=== PATIENT | male | born 1960 | race Caucasian/White ===

== ENCOUNTER 2017-04-05 17:43 | Inpatient (IN) | payer OTHER ==
[~2017-04-05] VITALS: Ht 182.9 cm; Wt 108.9 kg
[2017-04-05] MEDS ORDERED: ONDANSETRON HCL/PF 4 MG/2 ML VIAL IV ONE (18:00)
[2017-04-05] MEDS ORDERED: MORPHINE SULFATE INJ 2 MG/ML DISP.SYRIN IV ONE (18:00)
--- NOTE | 2017-04-05 18:00 | NUR ---
PATIENT PRESENTS TO ER C/O RIGHT ELBOW PAIN/INJURY S/P THROWING A FOOTBALL. PER PATIENT, HE HEARD A POP. PATIENT IS GRIMMACING IN PAIN. A/OX 4. BREATHING EVEN AND UNLABORED. NO SOB. VITALS STABLE. SAFETY AND COMFORT MEASURES IN PLACE. AWAITING MD ORDERS.
[2017-04-05] MEDS ORDERED: ONDANSETRON HCL/PF 4 MG/2 ML VIAL ONE (18:03)
[2017-04-05] MEDS ORDERED: MORPHINE SULFATE INJ 4 MG/ML DISP.SYRIN ONE (18:04)
--- NOTE | 2017-04-05 18:05 | NUR ---
NEW IV STARTED ON LAC, 20 G.
--- NOTE | 2017-04-05 18:09 | NUR ---
PATIENT MEDICATED PER MD ORDERS.
--- NOTE | 2017-04-05 18:14 | NUR ---
FLIGHT SUPERINTENDENT AT BEDSIDE.
[2017-04-05] MEDS ORDERED: HYDROMORPHONE INJ 0.5 MG/0.5 ML SYRINGE ONE ×2 (18:19→18:40)
--- NOTE | 2017-04-05 18:24 | NUR ---
PATIENT STILL IN SEVERE PAIN WHILE GETTING XRAY. PALOMA BAIN INFORMED, ORDERED 1MG DILAUDID IV. PATIENT MEDICATED PER MD ORDERS.
[2017-04-05] MEDS ORDERED: HYDROMORPHONE INJ 0.5 MG/0.5 ML SYRINGE IV ONE (18:30)
[2017-04-05] MEDS ORDERED: HYDROMORPHONE 1 MG/1 ML DISP.SYRIN IV ONE (19:00)
[2017-04-05 19:05] LABS: BASOPHILS # (AUTO) 0.3 /CMM (0.0-0.2); BASOPHILS % (AUTO) 2.1 % (0.0-2.0); EOSINOPHILS # (AUTO) 0.3 /CMM (0.0-0.7); EOSINOPHILS % (AUTO) 2.1 % (0.0-6.0); HEMATOCRIT 45 % (39-51); HEMOGLOBIN 15.4 g/dL (13.5-17.5); LYMPHOCYTES # (AUTO) 2.1 /CMM (0.8-4.8); LYMPHOCYTES % (AUTO) 12.6 % (20.0-44.0); MEAN CORPUSCULAR HEMOGLOBIN 30 PG (26.0-33.0); MEAN CORPUSCULAR HGB CONC 34 g/dl (31.0-36.0); MEAN CORPUSCULAR VOLUME 87 fL (80-96); MONOCYTES # (AUTO) 1.3 /CMM (0.1-1.30); NEUTROPHILS # (AUTO) 12.4 /CMM (1.8-8.9); NEUTROPHILS % (AUTO) 75.2 % (43.0-81.0); PLATELET COUNT (AUTO) 362 /CMM (150-450); RDW COEFFICIENT OF VARIATION 14.2 (11.5-15.0); RED BLOOD CELL COUNT(AUTO) 5.13 MIL/uL (4.5-6.0); WHITE BLOOD COUNT (AUTO) 16.4 K/uL (4.3-11.0)
--- NOTE | 2017-04-05 19:15 | NUR ---
REPORT RECEIVED FROM SARAH PHILLIPS FOR [facility].
[2017-04-05 19:25] LABS: CALCIUM, SERUM 9.1 mg/dL (8.5-10.1); CREATININE 2.6 mg/dL (0.6-1.3); INR 0.99 (0.85-1.15)
--- NOTE | 2017-04-05 19:30 | NUR ---
RT AT BEDSIDE FOR ELTON WESTON
--- NOTE | 2017-04-05 19:30 | NUR ---
REPORT GIVEN TO SADIQ SMITH FOR [facility].
--- NOTE | 2017-04-05 19:56 | NUR ---
CALLED [employer] FINANCIAL ADVISOR WAS PAGED.
[2017-04-05] MEDS ORDERED: MAGNESIUM HYDROXIDE 30 ML UDC PO PRN (20:30)
[2017-04-05] MEDS ORDERED: ONDANSETRON HCL/PF 4 MG/2 ML VIAL IVP PRN (20:30)
[2017-04-05] MEDS ORDERED: Z GUARD REMEDY 2 OZ OINT TP PRN (20:30)
[2017-04-05] MEDS ORDERED: HYDROMORPHONE INJ 2 MG/ML DISP.SYRIN IV PRN (20:30)
[2017-04-05] MEDS ORDERED: ACETAMINOPHEN 325 MG TABLET PO PRN (20:30)
[2017-04-05] MEDS ORDERED: MAG HYDROX/AL HYDROX/SIMETH 30 ML UDC PO PRN (20:30)
[2017-04-05] MEDS ORDERED: HYDROCODONE/APAP 5/325MG 1 EACH TABLET PO PRN (20:30)
--- NOTE | 2017-04-05 20:30 | NUR ---
REPORT CALLED TO M/S SARAH BEAL.
--- NOTE | 2017-04-05 21:02 | NUR ---
[place] PATROL INSPECTOR AT BEDSIDE TALKING TO PT REGARDING SPLINT APPLICATION.
[2017-04-05 21:30] VITALS: BP 167/88
[2017-04-05] MEDS: IV NS 0.9% 1,000 ML IV PRN (21:41)
[2017-04-05] MEDS ORDERED: AMLO5TAB2 PO (22:05)
[2017-04-05] MEDS ORDERED: DOCU-141 PO (22:05)
[2017-04-05] MEDS ORDERED: OMEP20CA10 PO (22:05)
[2017-04-05] MEDS ORDERED: METH18TA PO (22:05)
[2017-04-05] MEDS ORDERED: BUPR-51 PO (22:05)
[2017-04-05] MEDS ORDERED: FOLI1TAB16 PO (22:05)
[2017-04-05] MEDS ORDERED: HYOS-15 PO (22:05)
[2017-04-05] MEDS ORDERED: DULO30CA2 PO (22:05)
[2017-04-05] MEDS ORDERED: METH2.5T PO (22:05)
[2017-04-05] MEDS ORDERED: CETI-102 PO (22:05)
[2017-04-05] MEDS ORDERED: IPRA0.2S49 NEB (22:05)
[2017-04-05] MEDS ORDERED: BUPR300T54 PO (22:05)
[2017-04-05] MEDS ORDERED: LOSA50TA21 PO (22:05)
[2017-04-05] MEDS ORDERED: LAMO200T PO (22:05)
[2017-04-05] MEDS ORDERED: CLON0.5T4 PO (22:05)
[2017-04-05] MEDS ORDERED: ARIP5TAB10 PO (22:05)
--- NOTE | 2017-04-05 22:26 | NUR ---
KIT ROE NP, SPOKE TO HIM RELAYED AND REMINDED ABOUT MEDICATION RECONCILIATION THAT I JUST ENTERED, PER JYOTHI, HEYD HE WILL TAKE A LOOK OF IT. ALSO PT IS ON CPAP DURING HS. PER JYOTHI, ORDERED CPAP DURING HS Addendum: 04/05/17 at 2232 by LIAN KNOWLES RN NOTED AND CARRIED OUT, VERIFIED AND READ BACK
--- NOTE | 2017-04-05 22:30 | NUR ---
RN NOTES RECEIVE PT FROM [facility] AT [address]. ADMIT TO MS FLOOR. A/O X 4, STABLE CONDITION . HE DENIES ANY SOB, NAUSEA AND VOMITING. FEVER /CHILLS AND ANY OTHER PAIN. BREATHING EVEN AND UNLABORED, SAFETY MEASURES ARE IN PLACE, CALL LIGHT WITHIN REACH, WILL CONTINUE TO MONITOR PT. PT REFUSES SKIN ASSESSMENT DESPITE RISKS AND BENEFITS OFFERED 3 TIMES STILL REFUSES PER PT HE DOESNT HAVE ANY WOUNS
--- NOTE | 2017-04-05 22:53 | NUR ---
MS RN NOTES SPOKE TO JYOTHI KNOTT, NEED TO CHANGE ON STOCK IN OMNICELL 0.5 MG OF HYDROMORPHONE NEED TO RECHANGE ORDER SO I COULD GET 1 MG SAME DOSE HE ORDERED PER FINA GALLARDO NOTED AND CARRIED OUT VERFIED AND READ BACK
[2017-04-05] MEDS: HYDROMORPHONE INJ 0.5 MG/0.5 ML SYRINGE IV PRN (23:02)
[2017-04-06] MEDS: HYDROMORPHONE INJ 0.5 MG/0.5 ML SYRINGE IV PRN ×4 (02:26→12:58)
[2017-04-06 06:20] LABS: BASOPHILS % (AUTO) 0.2 % (0.0-2.0); EOSINOPHILS # (AUTO) 0.1 /CMM (0.0-0.7); EOSINOPHILS % (AUTO) 1.1 % (0.0-6.0); HEMATOCRIT 42 % (39-51); HEMOGLOBIN 14.1 g/dL (13.5-17.5); LYMPHOCYTES # (AUTO) 1.3 /CMM (0.8-4.8); LYMPHOCYTES % (AUTO) 10.8 % (20.0-44.0); MEAN CORPUSCULAR HEMOGLOBIN 30 PG (26.0-33.0); MEAN CORPUSCULAR HGB CONC 34 g/dl (31.0-36.0); MEAN CORPUSCULAR VOLUME 89 fL (80-96); MONOCYTES # (AUTO) 1.3 /CMM (0.1-1.30); MONOCYTES % (AUTO) 10.6 % (2.0-12.0); NEUTROPHILS # (AUTO) 9.4 /CMM (1.8-8.9); NEUTROPHILS % (AUTO) 77.3 % (43.0-81.0); PLATELET COUNT (AUTO) 325 /CMM (150-450); RED BLOOD CELL COUNT(AUTO) 4.72 MIL/uL (4.5-6.0); WHITE BLOOD COUNT (AUTO) 12.1 K/uL (4.3-11.0)
--- NOTE | 2017-04-06 06:20 | NUR ---
MS RN CLOSING NOTES PT ASLEEP IN BED AND EASILY AWAKEN, HOB ELEVATED AT ALL TIMES, 02 2LPM VIA NC SP02 98% PT TOLERATING CPAP DURING HS, AFEBRILE, IN STABLE CONDITION. RESPIRATION EVEN AND UNLABORED. ALL NURSING CARE RENDERED. NEEDS ATTENDED AND ANTICIPATED, KEPT CLEAN AND DRY AND COMFORTABLE. FREQUENT VISUAL CHECK DONE FOR SAFETY EVERY 2 HOURS. ON LOW BED AT ALL TIMES TO ENSURE SAFETY. SAFE HAZARD FREE ENVIRONMENT PROVIDED. CALL LIGHT WITHIN EASY TO REACH. WILL ENDORSE NEXT SHIFT CONTINUITY OF CARE. NO C/O OF PAIN.
[2017-04-06 06:32] LABS: ALBUMIN 3.6 g/dL (3.4-5.0); BILIRUBIN,TOTAL 0.4 mg/dL (0.2-1.0); CALCIUM, SERUM 8.7 mg/dL (8.5-10.1); CREATININE 2.2 mg/dL (0.6-1.3); MAGNESIUM 2.1 mg/dL (1.8-2.4); PHOSPHORUS 4.5 mg/dL (2.5-4.9); POTASSIUM 4.4 mmol/L (3.5-5.1); TOTAL PROTEIN, SERUM 7.5 g/dL (6.4-8.2)
[2017-04-06 06:44] LABS: THYROID STIMULATING HORMONE 1.766 uIU/mL (0.358-3.74)
--- NOTE | 2017-04-06 07:30 | NUR ---
RN MS NOTES PT IN BED, AWAKE, ALERT AND ORIENTED, NO COMPLAINT OF PAIN AT THIS TIME, RESPIRATIONS NORMAL AND NOT LABORED, IV FLUIDS INFUSING WELL, CALL LIGHT WITHIN REACH.
[2017-04-06 08:00] VITALS: BP 164/91
[2017-04-06] MEDS ORDERED: IPRATROPIUM NEB FS 0.5 MG/2.5 ML AMPUL.NEB NEB PRN (10:00)
[2017-04-06] MEDS ORDERED: METHOTREXATE SODIUM (2.5MG) 2.5 MG TABLET PO SCH ×2 (10:00→11:09)
[2017-04-06] MEDS: clonazePAM 0.5 MG TABLET PO SCH ×2 (10:24→17:36)
[2017-04-06] MEDS: AMLODIPINE BESYLATE 5 MG TABLET PO SCH (10:25)
[2017-04-06] MEDS: LOSARTAN POTASSIUM 50 MG TABLET PO SCH (10:25)
[2017-04-06] MEDS: ARIPIPRAZOLE 5 MG TABLET PO SCH (10:25)
[2017-04-06] MEDS: DULOXETINE HCL 30 MG CAPSULE.DR PO SCH (10:25)
[2017-04-06] MEDS: PANTOPRAZOLE 40 MG TABLET.DR PO SCH (10:26)
[2017-04-06] MEDS: DOCUSATE SODIUM 100 MG CAPSULE PO SCH (10:26)
[2017-04-06] MEDS: BUPROPION XL 150 MG TAB.ER.24 PO SCH (10:26)
[2017-04-06] MEDS: cetrizine 10 MG TABLET PO SCH (10:26)
[2017-04-06] MEDS: FOLIC ACID 1 MG TABLET PO SCH (10:26)
[2017-04-06] MEDS: HYOSCYAMINE SULFATE 0.125 MG TAB.SUBL SL SCH (12:58)
[2017-04-06] MEDS: LamoTRIgine 100 MG TABLET PO SCH (12:59)
--- NOTE | 2017-04-06 15:00 | NUR ---
RN MS NOTES PT IN BED, AWAKE, ALERT AND ORIENTED, PAIN MEDICATION GIVEN FOR PAIN MANAGEMENT ORDERED, KEPT RIGHT ELBOW IMMOBILIZED, SEEN AND EXAMINED BY DR. WEBSTER, PLAN OF CARE DISCUSSED WITH PT, VERBALIZED UNDESTANDING, IV FLUIDS INFUSING WELL, CALL LIGHT WITHIN REACH, NEEDS ATTENDED.
[2017-04-06 16:00] VITALS: BP 157/84
--- NOTE | 2017-04-06 16:11 | NUR ---
RN MS NOTES PT SEEN BY DR. AMADOR, ORDERS MADE AND CARRIED OUT.
[2017-04-06] MEDS: IV NS 0.9% 1,000 ML IV PRN (17:34)
[2017-04-06] MEDS: oxyCODONE IR immediate release 5 MG PO PRN ×3 (17:35→22:51)
[2017-04-06] MEDS: ACETAMINOPHEN 325 MG TABLET PO SCH ×2 (17:36→23:08)
--- NOTE | 2017-04-06 18:30 | NUR ---
RN MS NOTES PT IN BED, AWAKE, ALERT AND ORIENTED, PAIN MEDICATION GIVEN FOR PAIN MANAGEMENT ORDERED, DR. WEBSTER REAPPLIED RIGHT ELBOW SPLINT, WRAPPED IN RADHA BANDAGE, PT AND FAMILY PLANS TO GO BACK HOME TO SEE AN ORTHOPEDIC TUMOR SPECIALIST, PM MEDS GIVEN, TOLERATING CURRENT DIET WELL, ALL NEEDS ATTENDED.
--- NOTE | 2017-04-06 19:00 | NUR ---
RN NOTES RECEIVE PT IN BED, STABLE, NO S/S OF DISTRESS, PATIENT KEPT COMFORTABLE AT THIS TIME, SAFETY MEASURES IN PLACE, CALL LIGHT WITHIN REACH, WILL CONTINUE TO MONITOR.
--- NOTE | 2017-04-06 19:14 | NUR ---
THIS PATIENT [place] FROM OUT OF STATE, HE WILL GET HIS MRI DONE WHEN HE IS BACK HOME PER BEAN PICKER GABINO.
[2017-04-06 20:00] VITALS: BP 156/91
--- NOTE | 2017-04-07 00:54 | NUR ---
FOUND PT OFF CPAP WITH NASAL CANNULA ON. RN AWARE.
[2017-04-07] MEDS: oxyCODONE IR immediate release 5 MG PO PRN ×4 (02:41→10:42)
[2017-04-07] MEDS: ACETAMINOPHEN 325 MG TABLET PO SCH (05:08)
--- NOTE | 2017-04-07 06:26 | NUR ---
MS RN CLOSING NOTES PATIENT IN BED ASLEEP AND EASILY AWAKEN, STABLE, ON 2LPM VIA NC 02 SAT AT 99% HEAD OF BED ELEVATED FOR BETTER LUNG EXPANSION AND GOOD CIRCULATION. NO COMPLAINS OF CHEST PAIN, R ARM SPLINT MAINTAINED, SPLINT RUE, PAIN CONTROLLED WELL. NO C/O PAIN AT THIS TIME. NO SOB, NOT IN APPARENT DISTRESS, KEPT CLEAN AND DRY AND COMFORTABLE. VS STABLE, NEEDS ATTENDED AND ANTICIPATED. NURSING CARE RENDERED, KEPT CLEAN DRY AND COMFORTABLE. ON LOW BED TO ENSURE SAFETY, CALL LIGHT WITHIN REACH, WILL ENDORSE TO THE NEXT SHIFT CONTINUE PLAN OF CARE.
[2017-04-07 06:36] LABS: BASOPHILS % (AUTO) 0.1 % (0.0-2.0); EOSINOPHILS # (AUTO) 0.3 /CMM (0.0-0.7); EOSINOPHILS % (AUTO) 2.3 % (0.0-6.0); HEMATOCRIT 42 % (39-51); HEMOGLOBIN 14.1 g/dL (13.5-17.5); LYMPHOCYTES # (AUTO) 1.4 /CMM (0.8-4.8); LYMPHOCYTES % (AUTO) 11.4 % (20.0-44.0); MEAN CORPUSCULAR HEMOGLOBIN 30 PG (26.0-33.0); MEAN CORPUSCULAR HGB CONC 34 g/dl (31.0-36.0); MEAN CORPUSCULAR VOLUME 89 fL (80-96); MONOCYTES # (AUTO) 1.2 /CMM (0.1-1.30); MONOCYTES % (AUTO) 9.6 % (2.0-12.0); NEUTROPHILS # (AUTO) 9.5 /CMM (1.8-8.9); NEUTROPHILS % (AUTO) 76.6 % (43.0-81.0); PLATELET COUNT (AUTO) 294 /CMM (150-450); RED BLOOD CELL COUNT(AUTO) 4.66 MIL/uL (4.5-6.0); WHITE BLOOD COUNT (AUTO) 12.4 K/uL (4.3-11.0)
[2017-04-07 06:46] LABS: ALBUMIN 3.4 g/dL (3.4-5.0); BILIRUBIN,TOTAL 0.6 mg/dL (0.2-1.0); CALCIUM, SERUM 8.8 mg/dL (8.5-10.1); CREATININE 2.1 mg/dL (0.6-1.3); PHOSPHORUS 3.8 mg/dL (2.5-4.9); POTASSIUM 3.9 mmol/L (3.5-5.1); TOTAL PROTEIN, SERUM 7.4 g/dL (6.4-8.2)
[2017-04-07] MEDS: FOLIC ACID 1 MG TABLET PO SCH (08:14)
[2017-04-07] MEDS: cetrizine 10 MG TABLET PO SCH (08:14)
[2017-04-07] MEDS: BUPROPION XL 150 MG TAB.ER.24 PO SCH (08:14)
[2017-04-07] MEDS: LOSARTAN POTASSIUM 50 MG TABLET PO SCH (08:15)
[2017-04-07] MEDS: ARIPIPRAZOLE 5 MG TABLET PO SCH (08:15)
[2017-04-07] MEDS: AMLODIPINE BESYLATE 5 MG TABLET PO SCH (08:15)
[2017-04-07] MEDS: LamoTRIgine 100 MG TABLET PO SCH (08:15)
[2017-04-07] MEDS: HYOSCYAMINE SULFATE 0.125 MG TAB.SUBL SL SCH (08:15)
[2017-04-07] MEDS: clonazePAM 0.5 MG TABLET PO SCH (08:15)
[2017-04-07] MEDS: DOCUSATE SODIUM 100 MG CAPSULE PO SCH (08:15)
[2017-04-07] MEDS: PANTOPRAZOLE 40 MG TABLET.DR PO SCH (08:15)
[2017-04-07] MEDS: DULOXETINE HCL 30 MG CAPSULE.DR PO SCH (08:15)
--- NOTE | 2017-04-07 08:20 | NUR ---
MS RN NOTES PATIENT IN BED, AWAKE. A/O X4. TOLERATING ROOM AIR, NO SOB. RIGHT ARM WITH CAST AND RADHA WRAP IN PLACE. PATIENT PREFERS TO GO HOME AND FLIGHT BACK TO [place] TODAY WITH . SEEN BY HEDY CAPELLAN TODAY, WILL DISCHARGE PATIENT TODAY WITH PRESCRIPTION. CALL LIGHT WITHIN REACH. WILL CONT TO MONITOR.
[2017-04-07 08:56] VITALS: BP 141/96
--- NOTE | 2017-04-07 11:23 | NUR ---
MS RN DISCHARGED PATIENT HAS BEEN CLEARED FOR DISCHARGED BY JANICE. PATIENTS V/S REMAINS STABLE, NO SOB. RIGHT ARM CAST WITH RADHA WRAP REMAINS IN PLACE. IVC IN LEFT AC REMOVED, GAUZE APPLIED, NO BLEEDING NOTED. DISCHARGE INSTRUCTION GIVEN TO PATIENT AND , VERBALIZED UNDERSTANDING. BELONGINGS CHECKED AND PRESCRIPTION GIVEN TO PATIENT UPON DC. PATIENT LEFT HOSP IN STABLE CONDITION VIA PRIVATE CAR ACCOMPANIED BY .
== END 2017-04-07 11:23 | disposition home or self-care (01) | DRG 542 ==
LOC: ER 17:45 → MEDSG2 20:23
PROVIDERS: ADMIT Nurse Practitioner Acute Care; ATTEND Nurse Practitioner Acute Care
DX: M84.521A Pathological fracture in neoplastic disease, right humerus, initial encounter for fracture (principal); N17.0 Acute kidney failure with tubular necrosis; C79.51 Secondary malignant neoplasm of bone; N18.9 Chronic kidney disease, unspecified; Z85.528 Personal history of other malignant neoplasm of kidney; I12.9 Hypertensive chronic kidney disease with stage 1 through stage 4 chronic kidney disease, or unspecified chronic kidney disease; Z90.5 Acquired absence of kidney; R91.8 Other nonspecific abnormal finding of lung field; D72.829 Elevated white blood cell count, unspecified; F32.9 Major depressive disorder, single episode, unspecified; G89.3 Neoplasm related pain (acute) (chronic)
CPT/HCPCS: 36415; 71045-TC; 73070-TC; 80048-TC; 80053-TC; 80061-TC; 83605-TC; 83735-TC; 84100-TC; 84443-TC; 85025-TC; 85730-TC; 86850-TC; 87040-TC; 93307-TC; A4565; A4606; J2270; J2405; J7030; J8610; Z7610